=== PATIENT | male | born 1970 | race Caucasian/White ===

== ENCOUNTER 2021-10-02 09:32 | Day surgery (SDC) | payer MEDICARE ==
[2021-10-02] MEDS ORDERED: Xylocaine 1% Vial 30 ML PF IJ ONE (09:33)
[2021-10-02] MEDS ORDERED: Depo-Medrol 40 MG/ML IM ONE (09:33)
[2021-10-02] MEDS ORDERED: Sodium Chloride 0.9% 10 ML FLUSH Syringe IJ ONE (09:33)
[2021-10-02] MEDS ORDERED: DIPRIVAN 200 MG/20 ML IV ONE ×2 (11:46→11:53)
[2021-10-02] MEDS ORDERED: Lactated Ringers 1,000 ML IV ONE (13:20)
--- NOTE | 2021-10-02 13:40 | XRAY ---
Indication: Lumbar STAN. Intraoperative fluoroscopy provided for 25 seconds. 3 digital spot image submitted for interpretation demonstrate midline posterior needle tip projecting just posterior to L1. Small amount of contrast injected for needle tip placement. Correlate with intraoperative findings/report.
--- NOTE | 2021-10-02 14:25 | XRAY ---
25 seconds fluoroscopy time in surgery for lumbar STAN.
== END 2021-10-02 12:15 | disposition home or self-care (01) ==
LOC: SDC-PAIN 09:32
PROVIDERS: ATTEND Psychiatry & Neurology Pain Medicine
DX: M54.16 Radiculopathy, lumbar region (principal); I10 Essential (primary) hypertension; E78.5 Hyperlipidemia, unspecified; E11.9 Type 2 diabetes mellitus without complications; Z79.899 Other long term (current) drug therapy
CPT/HCPCS: 62321; 72100; 77003; 82947; J1030; J2001; J2704; Q9966